=== PATIENT | female | born 2000 | race American Indian/Alaskan Native ===

== ENCOUNTER 2021-03-08 19:31 | Emergency (ER) | payer MEDICAID, OTHER ==
[2021-03-08] MEDS ORDERED: HYDROcodone/ACETAMINOPHEN 5-325 MG TAB PO STA (20:32)
--- NOTE | 2021-03-08 20:34 | Emergency Department Report ---
ED Lower Extremity HPI - General Chief Complaint: Extremity Injury, Lower Stated Complaint: INJURED FOOT Time Seen by Provider: 03/08/21 20:27 Source: patient Mode of arrival: Wheelchair Limitations: No Limitations - History of Present Illness MD Complaint: foot injury -: Sudden, hour(s) (1) Injury: Foot: Left Type of Injury: blunt, inversion Place: home Severity: moderate Worsens With: weight bearing, palpation Context: fall (accidental trip and fall down stairs rolling foot causing pain with sanding and rom) Associated Symptoms: swelling, able to partially bear weight - Related Data Previous Rx's Medication Instructions Recorded Last Taken Type Ketorolac [Toradol] 10 mg PO Q6H PRN #10 tablet 03/08/21 Unknown Rx Allergies Allergy/AdvReac Type Severity Reaction Status Date / Time No Known Allergies Allergy Verified 03/08/21 20:41 ED Review of Systems ROS: Stated complaint: INJURED FOOT Other details as noted in HPI Comment: All other systems reviewed and negative ED Past Medical Hx - Past Medical History Previous Medical History?: No - Surgical History Past Surgical History?: No - Medications Home Medications: Home Medications Medication Instructions Recorded Confirmed Last Taken Type Ketorolac [Toradol] 10 mg PO Q6H PRN #10 tablet 03/08/21 Unknown Rx ED Physical Exam - General Limitations: No Limitations General appearance: alert, in no apparent distress - Head Head exam: Present: atraumatic, normocephalic - Eye Eye exam: Present: normal appearance - ENT ENT exam: Present: mucous membranes moist - Neck Neck exam: Present: normal inspection - Respiratory Respiratory exam: Present: normal lung sounds bilaterally. Absent: respiratory distress - Cardiovascular Cardiovascular Exam: Present: regular rate, normal rhythm. Absent: systolic murmur, diastolic murmur, rubs, gallop - GI/Abdominal GI/Abdominal exam: Present: soft, normal bowel sounds - Extremities Exam Extremities exam: Present: normal inspection, tenderness, normal capillary refill - Expanded Lower Extremity Exam Left Foot/Toe exam: Present: tenderness, swelling, tenderness at base of 5th m etatarsal. Absent: ecchymosis, deformity, erythema, amputation Neuro vascular tendon exam: Present: no vascular compromise. Absent: abnormal cap refill 1 - swelling and pain to this region - Back Exam Back exam: Present: normal inspection - Neurological Exam Neurological exam: Present: alert, oriented X3 - Psychiatric Psychiatric exam: Present: normal affect, normal mood - Skin Skin exam: Present: warm, dry, intact, normal color. Absent: rash ED Course Vital Signs 03/08/21 20:26 Temperature 97.9 F Pulse Rate 81 Respiratory 16 Rate Blood Pressure 127/70 O2 Sat by Pulse 98 Oximetry ED Lower Extremity MDM - Radiology Data Radiology results: report reviewed [facility] [address] [place] [address] XRay Report Signed Patient: NOHELIA OROSCO MR#: [id number] : 2000 Acct:[id number] Age/Sex: 20 / F ADM Date: 03/08/21 Loc: ED Attending Dr: Ordering Physician: VILMA MORRIS Date of Service: 03/08/21 Procedure(s): XR foot 3+V LT Accession Number(s): [id number] cc: VILMA MORRIS Fluoro Time In Minutes: LEFT FOOT, 3 VIEWS INDICATION / CLINICAL INFORMATION: lateral foot pain post fall. COMPARISON: None available. FINDINGS: No fracture or dislocation. No soft tissue abnormality. IMPRESSION: Negative exam. Signer Name: Abby Avitia MD Signed: 03/08/2021 9:07 PM Workstation Name: [id number] Transcribed By: JR Dictated By: Abby Avitia MD Electronically Authenticated By: Abby Avitia MD Signed Date/Time: 03/08/212106 DD/ 05 TD/TT: Print Cancel - Medical Decision Making 20-year-old F [place] female status post trip and fall on systems review resulting in rolling of the foot and having pain and swelling to the low lateral foot with a suspicion of a fracture. The area swollen and tender on examination x-ray does not support any fracture she is minimal weightbearing so we will place her in a md orthopedic shoe and crutches and advised her to ice the area and reevaluate with primary care provider or podiatry/orthopedic in 5 days should symptoms persist - Differential Diagnosis 20-year-old [place]ani female trip and fall downstairs no tingling of the eloy Critical care attestation.: If time is entered above; I have spent that time in minutes in the direct care of this critically ill patient, excluding procedure time. ED Disposition Clinical Impression: Foot contusion Disposition: HOME / SELF CARE / HOMELESS Is pt being admited?: No Does the pt Need Aspirin: No Condition: Stable Instructions: How to Use Cold Therapy, [id number], Foot Contusion, [id number], How to Use Cold Therapy Prescriptions: Ketorolac [Toradol] 10 mg PO Q6H PRN #10 tablet PRN Reason: Pain Referrals: [facility] [Provider Group] - 3-5 Days
--- NOTE | 2021-03-08 21:12 | XRay Report ---
LEFT FOOT, 3 VIEWS INDICATION / CLINICAL INFORMATION: lateral foot pain post fall. COMPARISON: None available. FINDINGS: No fracture or dislocation. No soft tissue abnormality. IMPRESSION: Negative exam. Signer Name: Abby Avitia MD Signed: 03/08/2021 9:07 PM Workstation Name: [id number]
[2021-03-08 23:43] VITALS: BP 134/72
== END 2021-03-08 23:53 | disposition home or self-care (01) ==
LOC: ED 19:31
DX: S90.32XA Contusion of left foot, initial encounter (principal); W01.0XXA Fall on same level from slipping, tripping and stumbling without subsequent striking against object, initial encounter; Y93.89 Activity, other specified; Y92.89 Other specified places as the place of occurrence of the external cause; Y99.8 Other external cause status
CPT/HCPCS: 99284

== ENCOUNTER 2021-04-12 04:24 | Emergency (ER) | payer MEDICAID ==
[2021-04-12] MEDS ORDERED: traMADol 50 MG TAB PO ONE (05:11)
[2021-04-12 05:15] VITALS: BP 138/71
--- NOTE | 2021-04-12 05:43 | Emergency Department Report ---
ED General Adult HPI - General Chief complaint: Dental/Oral Stated complaint: TOOTHACHE Time Seen by Provider: 04/12/21 05:12 Source: patient Mode of arrival: Ambulatory Limitations: No Limitations - History of Present Illness Initial comments: Is a 20-year-old female who presents for toothache recurrent for the past week. Patient states she is unable to see dentist until May 2021 due to likely been able to get an appointment. Patient now complains of tooth ache to right upper gum. Pain is described as 6/10 aching. Exacerbated by eating and hot and cold stimuli. Denies ear or throat pain. Patient is tolerating p.o. intake. There is no facial or throat or facial swelling Severity scale (0 -10): 10 - Related Data Previous Rx's Medication Instructions Recorded Last Taken Type Ketorolac [Toradol] 10 mg PO Q6H PRN #10 tablet 03/08/21 Unknown Rx Amoxicillin [Trimox CAP] 500 mg PO Q8H 7 Days #21 capsule 04/12/21 Unknown Rx Chlorhexidine Mouthwash [Peridex] 15 ml MM BID #1 bottle 04/12/21 Unknown Rx traMADoL [Ultram] 50 mg PO Q6HR PRN #12 tablet 04/12/21 Unknown Rx Allergies Allergy/AdvReac Type Severity Reaction Status Date / Time No Known Allergies Allergy Verified 03/08/21 20:41 ED Review of Systems ROS: Stated complaint: TOOTHACHE Other details as noted in HPI Constitutional: denies: chills, fever Eyes: denies: eye pain, eye discharge, vision change ENT: dental pain, epistaxis Respiratory: denies: cough, shortness of breath, wheezing Cardiovascular: as per HPI Endocrine: no symptoms reported Gastrointestinal: denies: abdominal pain, nausea, diarrhea Genitourinary: denies: urgency, dysuria, discharge Musculoskeletal: denies: back pain, joint swelling, arthralgia Skin: denies: rash, lesions Neurological: as per HPI. denies: headache, weakness, vertigo Psychiatric: denies: anxiety, depression Hematological/Lymphatic: denies: easy bleeding, easy bruising ED Past Medical Hx - Past Medical History Previous Medical History?: No - Surgical History Past Surgical History?: No - Social History Smoking Status: Never Smoker Substance Use Type: None - Medications Home Medications: Home Medications Medication Instructions Recorded Confirmed Last Taken Type Ketorolac [Toradol] 10 mg PO Q6H PRN #10 tablet 03/08/21 Unknown Rx Amoxicillin [Trimox CAP] 500 mg PO Q8H 7 Days #21 capsule 04/12/21 Unknown Rx Chlorhexidine Mouthwash [Peridex] 15 ml MM BID #1 bottle 04/12/21 Unknown Rx traMADoL [Ultram] 50 mg PO Q6HR PRN #12 tablet 04/12/21 Unknown Rx ED Physical Exam - General Limitations: No Limitations General appearance: alert, in no apparent distress - Head Head exam: Present: normocephalic, normal inspection - Eye Eye exam: Present: normal appearance, EOMI Pupils: Present: normal accommodation - ENT ENT exam: Present: normal orophraynx, mucous membranes moist - Expanded ENT Exam Expanded Teeth exam: Present: dental caries, fractured tooth # (27) Throat exam: Negative: tonsillar erythema, tonsillomegaly, tonsillar exudate, R peritonsillar mass, L peritonsillar mass - Neck Neck exam: Present: normal inspection, full ROM. Absent: tenderness, lymphadenopathy - Respiratory Respiratory exam: Present: normal lung sounds bilaterally. Absent: respiratory distress, wheezes, stridor - Cardiovascular Cardiovascular Exam: Present: regular rate, normal rhythm, normal heart sounds. Absent: systolic murmur, diastolic murmur, rubs, gallop - GI/Abdominal GI/Abdominal exam: Present: soft, normal bowel sounds. Absent: distended, tenderness - Rectal Rectal exam: Present: deferred - Extremities Exam Extremities exam: Present: normal inspection, full ROM, normal capillary refill. Absent: tenderness - Back Exam Back exam: Present: normal inspection, full ROM. Absent: CVA tenderness (R), CVA tenderness (L) - Neurological Exam Neurological exam: Present: alert, oriented X3, CN II-XII intact, normal gait - Psychiatric Psychiatric exam: Present: normal affect, normal mood - Skin Skin exam: Present: warm, dry, intact, normal color. Absent: rash ED Course Vital Signs 04/12/21 04/12/21 04:26 05:26 Temperature 98.6 F Pulse Rate 60 Respiratory 18 18 Rate Blood Pressure 138/71 O2 Sat by Pulse 98 Oximetry ED Medical Decision Making - Medical Decision Making Diagnosis infected dental caries plan DC home with prescriptions, follow-up with dentist in 2 to 3 days. Return to emergency department should symptoms worsen or unable to tolerate p.o. Critical care attestation.: If time is entered above; I have spent that time in minutes in the direct care of this critically ill patient, excluding procedure time. ED Disposition Clinical Impression: Infected dental caries Disposition: 01 HOME / SELF CARE / HOMELESS Is pt being admited?: No Does the pt Need Aspirin: No Condition: Stable Instructions: Dental Extraction, Care After, [id number] Additional Instructions: Take medications as prescribed. Follow-up with dentist in 2 to 3 days. Return to emergency should symptoms worsen. Prescriptions: Chlorhexidine Mouthwash [Peridex] 15 ml MM BID #1 bottle Amoxicillin [Trimox CAP] 500 mg PO Q8H 7 Days #21 capsule traMADoL [Ultram] 50 mg PO Q6HR PRN #12 tablet PRN Reason: Pain Referrals: [facility] [Outside] - 3-5 Days [facility] [Provider Group] - 3-5 Days Forms: Work/School Release Form(ED) Time of Disposition: 05:59
== END 2021-04-12 06:51 | disposition home or self-care (01) ==
LOC: ED 04:24
DX: K02.9 Dental caries, unspecified (principal); Z79.899 Other long term (current) drug therapy
CPT/HCPCS: 99282